=== PATIENT | female | born 1955 | race Caucasian/White ===

== ENCOUNTER → 2017-11-15 | Outpatient (CLI) | payer OTHER ==
--- NOTE | 2017-11-15 17:31 | RAD ---
Lumbar spine, 3 views, 11/15/2017: History: Low back pain radiating down the legs The lumbar vertebral heights are well-maintained. There is disc space narrowing with a vacuum disc phenomena, endplate sclerosis and marginal spurring at L5-S1. There is a grade 1-2 spondylolisthesis at that level. There is probable underlying spondylolysis at L5. The other lumbar disc spaces are well-maintained. There is moderate facet joint arthropathy in the lower lumbar spine. IMPRESSION: 1. Moderate spondylolisthesis at L5-S1 with probable underlying bilateral spondylolysis. 2. Severe degenerative disc disease at L5-S1.
== END | disposition home or self-care (01) ==
LOC: RAD 17:05
DX: M51.37 Other intervertebral disc degeneration, lumbosacral region (principal); M43.17 Spondylolisthesis, lumbosacral region
CPT/HCPCS: 72100

== ENCOUNTER → 2017-12-27 | Outpatient (CLI) | payer OTHER ==
[~2017-12-27] VITALS: Ht 162.6 cm; Wt 86.2 kg
[~2017-12-27] MED LIST: REGADENOSON 0.4 MG/5 ML DISP.SYRIN. IV ONE
--- NOTE | 2017-12-27 13:35 | RAD ---
MR#: [id number] Date of Study: 12/27/2017 Ordering Physician: MARTA DAVENPORT, Referring Physician: THEA MOSELEY Tech: TEODORO Malone APPROVED REPORT Test Type: Pharmacological Stress Nurse/Tech: TEODORO Malone Test Indications: Chest Pressure Cardiac History: HTN Medications: see EHR Medical History: see EHR Resting ECG: SR Resting Heart Rate: 64 bpm Resting Blood Pressure: 126/74mmHg Pretest Chest Pain: None Nurse/Tech Notes Consent: The procedure was explained to the patient in lay terms. Informed consent was witnessed. Merritt eout was entered into [employer]. History and Stress Test performed by TEODORO Malone Pharm. Details Pharmacologic stress testing was performed using 0.4mg per 5ml of regadenoson given intravenously ove r 7-10 seconds. POST EXERCISE Reason for Termination: Infusion complete Max HR: 93 bpm Max Blood Pressure: 127/77mmHg Blood Pressure response to exercise: Normal blood pressure response during stress. Heart Rate response to exercise: normal response Chest Pain: No. INTERPRETATION Stress EKG Conclusion: Baseline EKG showed sinus rhythm. No ischemic changes at peak stress. No arr hythmias. Imaging Protocol IMAGE PROTOCOL: Rest Tc-99m/stress Tc-99m 1 day Rest: Stress: Viability: Radiopharm.Tc99m TjutlyzniUl92c Sestamibi Dose10.2mCi 32.9mCi Duration 15min. 10min. Img Date 12/27/2017 12/27/2017 Inj-Img [id number]. 60min. Rest Admin Site:IV - Left HandAdministrator: TEODORO Malone Stress Admin Site: IV - Left HandAdministrator: TEODORO Malone STRESS DATA End Diast. Vol.74.0mlAv. Heart Rate77.0bpm LVEDV index BSA1.0mlCardiac Output0.1L/min End Syst. Vol.6.0mlCO Index BSA5.2L/min LVESV index BSA0.0mlMyocardial Mqcb785.0g Eject. Yubdhsla16.0% Stress Rates Pk. Fill Rate3.59EDV/secLVtime Pk. Fill 125.27msec Pk. Empty Rate5.16ESV/secLVtime Pk. Syxjg685.70msec /3 Pk. Fill1.93EDV/sec Stress Scores Regional WT0.00Summed WT0.00 Regional WM0.00Summed WM0.00 Study quality was good. Left Ventricular size was Normal at Rest and Stress. Lung uptake was Normal. Left Ventricular ejection fraction is >80%. The rest and stress images show normal perfusion, normal contraction and thickening. LV Perf. Quant 17 Seg. SSS1.00 17 Seg. SRS3.00 17 Seg. SDS0.00 Stress Defect Extent (% LAD)0.00Rest Defect Extent (% LAD)0.00Rev. Defect Extent (% LAD)0.00 Stress Defect Extent (% LCX) 0.00Rest Defect Extent (% LCX)0.00Rev. Defect Extent (% LCX)0.00 Stress Defect Extent (% RCA)0.00Rest Defect Extent (% RCA)0.00Rev. Defect Extent (% RCA)0.00 Stress Defect Extent (% DEL)0.00Rest Defect Extent (% DEL)0.00Rev. Defect Extent (% DEL)0.00 Conclusion 1. Regadenoson cardioisotope stress test did not show any evidence of ischemia or infarct. 2. Normal left ventricular systolic function with ejection fraction calculated at >80%. 3. Low risk for cardiac events. Signed by : Oscar Contreras, Electronically Approved : 12/27/2017 13:34:41
== END ==
LOC: NM 08:08
PROVIDERS: ATTEND Internal Medicine Cardiovascular Disease
DX: R10.9 Unspecified abdominal pain (principal); I10 Essential (primary) hypertension
CPT/HCPCS: 78452; 93017; 96374; 96375; 96376; A9500; J2785

== ENCOUNTER → 2020-12-13 | Outpatient (CLI) | payer MEDICARE ==
--- NOTE | 2020-12-13 17:33 | RAD ---
EXAM: Left knee, 3 views. HISTORY: Fall. COMPARISON: None. FINDINGS: 3 views of the left knee are obtained. There is no fracture, dislocation or subluxation. Th ere is no joint effusion. There are incidental growth arrest lines within the distal femur and proxim al tibia. IMPRESSION: No acute osseous finding. Electronically signed by: Vicenta De La Vega MD (12/13/2020 5:31 PM) [id number]
== END ==
LOC: DXRAD 16:33
PROVIDERS: ATTEND Physician Assistant Medical
DX: M25.562 Pain in left knee (principal)
CPT/HCPCS: 73562

== ENCOUNTER → 2021-04-13 | Outpatient (CLI) | payer MEDICARE ==
--- NOTE | 2021-04-13 09:34 | RAD ---
EXAM: Abdomen sonogram. HISTORY: Pain. TECHNIQUE: Sonographic imaging of the abdomen was performed. COMPARISON: None. FINDINGS: There is hepatomegaly. There is hepatic steatosis. No focal hepatic lesion is seen. The com mon bile duct is normal in caliber. The gallbladder is unremarkable. The pancreatic tail is obscured due to bowel gas. The right kidney and inferior vena cava are unremarkable. IMPRESSION: 1. Hepatomegaly and hepatic steatosis. 2. Partially obscured pancreas due to bowel gas. Electronically signed by: Vicenta De La Vega MD (04/13/2021 9:32 AM) [id number]
== END ==
LOC: US 08:34
PROVIDERS: ATTEND Physician Assistant Medical
DX: R16.0 Hepatomegaly, not elsewhere classified (principal); K76.0 Fatty (change of) liver, not elsewhere classified
CPT/HCPCS: 76705

== ENCOUNTER → 2022-01-20 | Outpatient (CLI) | payer MEDICARE ==
--- NOTE | 2022-01-20 11:08 | RAD ---
Right wrist 4 views. HISTORY: Bruising posterior carpals 3 views were taken of the right wrist. 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 There is no acute fracture noted in the right wrist. There is no acute osseous abnormality. There is posterior soft tissue swelling on the lateral view. IMPRESSION: 1. Soft tissue swelling right wrist. 2. No fracture or acute osseous abnormality. 3. Arthritis first carpal metacarpal joint. Electronically signed by: Favian Enriquez MD (01/20/2022 11:05 AM) [facility]
== END ==
LOC: PMG 10:33
PROVIDERS: ATTEND Nurse Practitioner Family
DX: M18.11 Unilateral primary osteoarthritis of first carpometacarpal joint, right hand (principal); M77.8 Other enthesopathies, not elsewhere classified; M79.89 Other specified soft tissue disorders; M25.831 Other specified joint disorders, right wrist
CPT/HCPCS: 73110